=== PATIENT | male | born 1985 | race Caucasian/White ===

== ENCOUNTER 2020-07-13 10:25 | Outpatient (REF) | payer BC, SELFPAY | END 2020-07-13 10:26 | disposition home or self-care (01) | LOC: HO.HMGCLDS 10:25 | PROVIDERS: PCP Hospitalist; Visit Provider Internal Medicine | DX: Z20.828 Contact with and (suspected) exposure to other viral communicable diseases (principal) | CPT/HCPCS: 36415; 87635 ==

== ENCOUNTER 2020-09-21 12:07 | Outpatient (REF) | payer BC, SELFPAY ==
--- NOTE | 2020-09-21 12:10 | XR_ITS ---
EXAMINATION: XR CHEST CLINICAL INFORMATION: Cough. COMPARISON: None TECHNIQUE: 2 views of the chest were obtained. FINDINGS: No significant abnormality is noted involving the heart, lungs, mediastinum, bony thorax or soft tissues. XR/XR chest 2V IMPRESSION: Unremarkable chest examination.
== END 2020-09-21 12:08 | disposition home or self-care (01) ==
LOC: HO.HMGCX 12:07
PROVIDERS: PCP Hospitalist; Visit Provider Hospitalist
DX: R05 Cough (principal)
CPT/HCPCS: 71046

== ENCOUNTER 2023-08-31 09:59 | Outpatient (AMB) | payer BC, SELFPAY ==
--- NOTE | 2023-08-31 10:24 | MHC.OFFWIV ---
Intake Vital Signs 08/31/23 10:25 Height 5 ft 9 in Weight 213 lb BMI 31.5 BP 160/90 H Blood Pressure Location Rt brachial Position Sitting Pulse 102 H Pulse Source Pulse Oximeter Temp 98.5 F Temp Source Temporal Artery Scan Pulse Oximetry (%) 97 Oxygen Delivery Method Room Air Intake Visit Reasons: EST/cough Intake Note: pt is here for c/o cough suspects pneumonia due to getting it every year Patient Tobacco Use Status: Never used Tobacco Allergies No Known Allergies Allergy (Verified 08/31/23 11:16) Do you need a note to return to daycare/school/sports/work: Yes HPI EST/cough HPI Details Patient presents for a sick visit. Reporting symptoms of sinus congestion, sore throat and difficulty swallowing. Low-grade fever. No family member is sick. No recent travel. Patient reports symptoms of malaise and fatigue. [facility], LAT[facility] Social History Patient Tobacco Use Status: Never used Tobacco Physical Exam Vital Signs: Last Vital Signs Temp 98.5 F 08/31/23 10:25 Pulse 102 H 08/31/23 10:25 BP 160/90 H 08/31/23 10:25 Pulse Ox 97 08/31/23 10:25 Oxygen Delivery Method Room Air 08/31/23 10:25 BMI result Body Mass Index 31.5 Const General: cooperative and healthy appearing Nutritional Appearance: well nourished Orientation/consciousness: patient oriented x3 Limitations: no limitations HEENT Head: Yes normal to inspection Eyes General: appearance normal, both eyes and all related structures Neck Neck: Yes normal visual inspection Chest Chest palpation & inspection: normal palpation of entire chest wall Resp Effort & Inspection: normal respiratory effort Neuro General: patient oriented x3 Assessment & Plan Assessment & Plan (1) Upper respiratory tract infection: Code(s): J06.9 - Acute upper respiratory infection, unspecified Plan: Antibiotics ordered. Increase fluid intake. Tylenol for aches and pains. If symptoms worsen, follow-up here for a recheck. Coding Level of Care Code Est Pt Level 3 (06720) Diagnoses Upper respiratory tract infection J06.9
[2023-08-31 10:25] VITALS: BP 160/90; PULSE 102; TEMP 36.9; O2SAT 97; BMI 31.5
== END 2023-08-31 11:35 | disposition home or self-care (01) ==
PROVIDERS: PCP Hospitalist; Visit Provider Internal Medicine
DX: J06.9 Acute upper respiratory infection, unspecified (principal)
CPT/HCPCS: 99213